=== PATIENT | female | born 1945 | race Asian ===

== ENCOUNTER 2018-07-16 10:19 | Observation (INO) ==
[2018-07-16] MEDS ORDERED: Pantoprazole Inj 40 MG Vial IV.PUSH ONE (13:37)
[2018-07-16 14:02] LABS: Baso % (Auto) 0.4 % (0.0-2.0); Eos # (Auto) 0.1 th/mm3 (0.0-0.4); Hemoglobin 8.8 gm/dL (11.6-15.3); Lymph # (Auto) 2.2 th/mm3 (1.0-4.8); Lymph % (Auto) 20.7 % (9.0-44.0); Mean Corpuscular HGB Conc 32.7 % (32.0-36.0); Mean Corpuscular Hemoglobin 29.4 pg (27.0-34.0); Mean Corpuscular Volume 90.1 fL (80.0-100.0); Mean Platelet Volume 8.5 fL (7.0-11.0); Mono # (Auto) 0.6 th/mm3 (0.0-0.9); Mono % (Auto) 5.5 % (0.0-8.0); Neut # (Auto) 7.8 th/mm3 (1.8-7.7); Neut % (Auto) 72.4 % (16.0-70.0); Platelet Count 334 th/mm3 (150-450); Red Cell Distribution Width 18.9 % (11.6-17.2); White Blood Count 10.8 th/mm3 (4.0-11.0)
[2018-07-16 14:12] LABS: Activated Partial Thrombo Time 25.7 sec (24.3-30.1); INR 0.9 Ratio; Prothrombin Time 9.4 sec (9.8-11.6)
[2018-07-16 14:26] LABS: Alanine Aminotransferase 22 U/L (10-53); Albumin 3.9 g/dL (3.4-5.0); Anion Gap 8 meq/L (5-15); Aspartate Aminotransferase 21 U/L (15-37); Blood Urea Nitrogen 10 mg/dL (7-18); Carbon Dioxide 24.9 meq/L (21.0-32.0); Chloride 108 meq/L (98-107); Glomerular Filtration Rate 66 mL/min (>89); Glucose,Random 102 mg/dL (74-106); Potassium 3.4 meq/L (3.5-5.1); Sodium 141 meq/L (136-145)
[2018-07-16 14:30] LABS: Alkaline Phosphatase 50 U/L (45-117); Total Protein 7.4 g/dL (6.4-8.2)
--- NOTE | 2018-07-16 16:01 | ED ---
HPI General Chief complaint: Recheck/Abnormal Lab/Rx Stated complaint: abnl labs Time Seen by Provider: 07/16/18 13:25 Source: patient and family Mode of arrival: ambulatory Limitations: no limitations History of Present Illness HPI narrative: 72-year-old female that presents to the ED for evaluation of low hemoglobin. Per patient she was called by her doctor because her hemoglobin was 7.9. She was told to come here. Apparently she went to see her doctor this week for a checkup as well as for evaluation of shortness of breath with exertion as well as feeling weak and tired. Per patient she had a epigastric pain as well as feeling like she was sick over the weekend. Per patient now that is better but she still has shortness of breath with exertion which she did not had before. Per patient and family members she is very active and she walks almost every day. Before she was able to walk with minimal exertion but now for the past week even walking just to the bathroom gives her very exerted. She denies any active bleeding. She does take aspirin but no blood thinner. She denies any history of heart disease. No urinary or bowel movement issues. No chest pain. No shortness of breath or tone with exertion. Has not seen anybody for this and has per patient never had a colonoscopy. She denies any history of ulcers. She denies any other medical issues at this time. Per patient she was told to come by her doctor because she may be bleeding. Related Data Home Medications Medication Instructions Recorded Confirmed calcium carbonate-vitamin D3 1,000 mg PO DAILY 07/16/18 07/16/18 [Calcium 500 + D] jgvavavkjbpu-iurw-pizvj acid 1 tab PO DAILY 07/16/18 07/16/18 [Centrum] risedronate [Actonel] 150 mg PO QMONTH 07/16/18 07/16/18 Allergies Allergy/AdvReac Type Severity Reaction Status Date / Time No Known Allergies Allergy Verified 07/16/18 13:37 Review of Systems ROS: all other systems reviewed are negative ON LICENSE OF [facility] Medical History Medical History High cholesterol (Acute) Osteoporosis (Acute) History of hysterectomy (Acute) Social History Social History Substance History: No History of Abuse Smoking Status: Current every day smoker Tobacco Type: Cigarettes How Often Do You Have a Drink Containing Alcohol: Never Recent Travel in [facility] within the Last 8 Weeks: No Immunization History Tetanus Immunization: >5 Years Hx Influenza Vaccine This Season: No Exam Narrative Exam Narrative: GENERAL: SKIN: Warm and dry. HEAD: Atraumatic. Normocephalic. EYES: Pupils equal and round. No scleral icterus. No injection or drainage. ENT: No nasal bleeding or discharge. Mucous membranes pink and moist. Tongue is midline. No uvula deviation. NECK: Trachea midline. No JVD. CARDIOVASCULAR: Regular rate and rhythm. RESPIRATORY: No accessory muscle use. Clear to auscultation. Breath sounds equal bilaterally. GASTROINTESTINAL: Abdomen soft, non-tender, nondistended. Hepatic and splenic margins not palpable. Rectal exam: old external hemorroid with no active bleeding. no rectal blood noted. MUSCULOSKELETAL: Extremities without clubbing, cyanosis, or edema. No obvious deformities. Full ROM of the upper and lower extremities bilaterally. 2+ bilaterally. NEUROLOGICAL: Awake and alert. No obvious cranial nerve deficits. Motor grossly within normal limits. Five out of 5 muscle strength in the arms and legs. Normal speech. PSYCHIATRIC: Appropriate mood and affect; insight and judgment normal. Procedures Hemaprompt Stool Procedural Steps Taken: specimen placed in appropriate test area, developer placed on specimen and control areas and controls appropriately positive and negative Hemaprompt Stool Result: positive Course Initial Documented Vital Signs Temperature 98.5 F 07/16/18 10:31 Pulse Rate 96 H 07/16/18 10:31 Respiratory Rate 18 07/16/18 10:31 Blood Pressure 169/74 H 07/16/18 10:31 Pulse Oximetry 98 07/16/18 10:31 Last Documented Vital Signs Temperature 98.5 F 07/16/18 10:31 Pulse Rate 96 H 07/16/18 10:31 Respiratory Rate 18 07/16/18 10:31 Blood Pressure 169/74 H 07/16/18 10:31 Pulse Oximetry 98 07/16/18 10:31 Medical Decision Making [facility] Narrative Medical decision making narrative: 72-year-old female that presents to the ED for evaluation of possible GI bleed. Patient was properly examined and was found to have signs and symptoms consistent with GI bleed. Hemoglobin better than when she was told to come here. Patient does not take any blood thinners or than aspirin. She is symptomatic with exertion. Overall she looks well however. Do recommend admission for further evaluation and treatment of this. Patient was turned Protonix. No blood was given as patient does not have any cardiac disease and her hemoglobin is stable at 8.8. Patient and family agree with plan. Case discussed with Dr. Burciaga who agrees admission to their service. Medical Screen Exam Complete: Yes Emergency Medical Condition: Yes Differential Diagnosis Differential Diagnosis: GI bleed vs anemia vs symptomatic anemia vs excertional dyspnea Medical Records Medical records reviewed: Yes I reviewed the patient's medical records. Lab Data Lab results reviewed: Yes I reviewed the patient's lab results. Lab results narrative: trop negative, Result diagrams: 07/16/18 13:40 07/16/18 13:40 Lab Results 07/16/18 07/16/18 07/16/18 Range/Units 13:40 13:40 13:40 WBC 10.8 (4.0-11.0) th/mm3 RBC 3.00 L (4.00-5.30) mil/mm3 Hgb 8.8 L (11.6-15.3) gm/dL Hct 27.0 L (35.0-46.0) % MCV 90.1 (80.0-100.0) fL MCH 29.4 (27.0-34.0) pg MCHC 32.7 (32.0-36.0) % RDW 18.9 H (11.6-17.2) % Plt Count 334 (150-450) th/mm3 MPV 8.5 (7.0-11.0) fL Neut % (Auto) 72.4 H (16.0-70.0) % Lymph % (Auto) 20.7 (9.0-44.0) % [place] % (Auto) 5.5 (0.0-8.0) % Eos % (Auto) 1.0 (0.0-4.0) % Baso % (Auto) 0.4 (0.0-2.0) % Neut # (Auto) 7.8 H (1.8-7.7) th/mm3 Lymph # (Auto) 2.2 (1.0-4.8) th/mm3 [place] # (Auto) 0.6 (0.0-0.9) th/mm3 Eos # (Auto) 0.1 (0.0-0.4) th/mm3 Baso # (Auto) 0.0 (0.0-0.2) th/mm3 WBC Differential . Differential Comment Auto diff final PT 9.4 L (9.8-11.6) sec INR 0.9 Ratio APTT 25.7 (24.3-30.1) sec Sodium 141 (136-145) meq/L Potassium 3.4 L (3.5-5.1) meq/L Chloride 108 H (98-107) meq/L Carbon Dioxide 24.9 (21.0-32.0) meq/L Anion Gap 8 (5-15) meq/L BUN 10 (7-18) mg/dL Creatinine 0.85 (0.50-1.00) mg/dL Estimated GFR 66 L (>89) mL/min Random Glucose 102 (74-106) mg/dL Calcium 9.0 (8.5-10.1) mg/dL Total Bilirubin 0.2 (0.2-1.0) mg/dL AST 21 (15-37) U/L ALT 22 (10-53) U/L Alkaline Phosphatase 50 (45-117) U/L Troponin I Less than 0.02 L (0.02-0.05) ng/mL Total Protein 7.4 (6.4-8.2) g/dL Albumin 3.9 (3.4-5.0) g/dL Blood Type Antibody Screen 07/16/18 Range/Units 13:40 WBC (4.0-11.0) th/mm3 RBC (4.00-5.30) mil/mm3 Hgb (11.6-15.3) gm/dL Hct (35.0-46.0) % MCV (80.0-100.0) fL MCH (27.0-34.0) pg MCHC (32.0-36.0) % RDW (11.6-17.2) % Plt Count (150-450) th/mm3 MPV (7.0-11.0) fL Neut % (Auto) (16.0-70.0) % Lymph % (Auto) (9.0-44.0) % [place] % (Auto) (0.0-8.0) % Eos % (Auto) (0.0-4.0) % Baso % (Auto) (0.0-2.0) % Neut # (Auto) (1.8-7.7) th/mm3 Lymph # (Auto) (1.0-4.8) th/mm3 [place] # (Auto) (0.0-0.9) th/mm3 Eos # (Auto) (0.0-0.4) th/mm3 Baso # (Auto) (0.0-0.2) th/mm3 WBC Differential Differential Comment PT (9.8-11.6) sec INR Ratio APTT (24.3-30.1) sec Sodium (136-145) meq/L Potassium (3.5-5.1) meq/L Chloride (98-107) meq/L Carbon Dioxide (21.0-32.0) meq/L Anion Gap (5-15) meq/L BUN (7-18) mg/dL Creatinine (0.50-1.00) mg/dL Estimated GFR (>89) mL/min Random Glucose (74-106) mg/dL Calcium (8.5-10.1) mg/dL Total Bilirubin (0.2-1.0) mg/dL AST (15-37) U/L ALT (10-53) U/L Alkaline Phosphatase (45-117) U/L Troponin I (0.02-0.05) ng/mL Total Protein (6.4-8.2) g/dL Albumin (3.4-5.0) g/dL Blood Type O Positive Antibody Screen Negative ECG Data Attestation: I personally reviewed and interpreted this ECG as follows: Interpretation: EKG shows sinus rhythm with no sign of acute ischemia or arrhythmia. Read by me and attending. Discharge Plan Discharge Disposition Patient Disposition: 30 Still Patient Discharge Details Diagnosis: Acute GI bleeding, Symptomatic anemia, Exertional dyspnea Physicians Team ED Provider: Franklin Flores ED Midlevel Provider: Rajeev Brown Primary Care Provider: Ale Mcgrath Attending Provider: Tio Burciaga Other Providers: Grace Montalvo Discharge Interventions Interventions: Vital Signs Last Done: 07/16/18 10:31 Status ED Status: Admitted Observation Patient
[2018-07-16] MEDS ORDERED: Bisacodyl 10 MG Supp RECTAL PRN (16:05)
[2018-07-16] MEDS ORDERED: Acetaminophen 325 MG Tablet PO PRN (16:05)
[2018-07-16] MEDS: Pantoprazole Inj 80 MG in Sodium Chlor 0.9% Inj 100 ML IV.CONT SCH (16:41)
--- NOTE | 2018-07-16 16:45 | XR ---
EXAM DATE: 07/16/2018 4:04 PM EDT AGE/SEX: 72 years / Female INDICATIONS: Chest pain. CLINICAL DATA: This is the patient's initial encounter. Patient reports that signs and symptoms have been present for 1 day and indicates a pain score of 4/10. MEDICAL/SURGICAL HISTORY: None. None. COMPARISON: No prior exams available for comparison. FINDINGS: Portable AP view of the chest demonstrates a normal-sized cardiac silhouette with calcification of th e aorta. EKG lines overlie the patient. No effusion, consolidation, or pneumothorax is identified. Th e bones and soft tissues demonstrate no acute abnormality. CONCLUSION: No acute cardiopulmonary abnormality is identified. Electronically signed by: Cj Small MD 07/16/2018 4:44 PM EDT
--- NOTE | 2018-07-16 16:45 | P.HP ---
History of Present Illness Service: Hospitalist Primary Care Physician: Ale Mcgrath MD Chief Complaint: Shortness of breath History of Present Illness: Patient is a 72-year-old female who presented to the emergency room after seeing her primary care physician who noted low hemoglobin. Her past medical history includes osteoporosis and hyperlipidemia. Patient was found to have a hemoglobin of 8.8 in the emergency room. She complains of becoming very short of breath and tired while doing physical activity that was previously not difficult for her. This is been going on for 2-3 days and was initially noticed after her daily 20-30 minute walks. She also reports a recent episode of epigastric pain over the weekend that resolved on its own. She has not had any nausea or vomiting. She does tell me that she has been experiencing hard stools for several days. She did have a large bowel movement today-denies any blood or dark tarry stools. No history of GI problems or bleeds. She has never had a colonoscopy per her report. She is a current smoker-tells me she has cut back and now only smokes 1 pack over every 3 days. Denies any history of asthma or problems with shortness of breath. No recent respiratory illnesses. Denies any cardiac history other than hyperlipidemia. Per her report her primary doctor recently stopped her statin as he felt it was not beneficial any longer. She does take a daily aspirin. Review of Systems All other systems reviewed negative except as stated in HPI PMFSH - History History Provided By: Patient - Medical History Medical History: Medical History (Last Reviewed 07/16/18 @ 17:05 by WAQAR Marin) High cholesterol Osteoporosis History of hysterectomy - Family History Family History: Family History (Last Reviewed 07/16/18 @ 17:05 by WAQAR Marin) Other Family history non-contributory - Social History I have reviewed the patient's Social History: Yes - Tobacco History Second Hand Smoke Exposure: Yes Tobacco Use In Past 30 Days: Yes Smoking Status: Current every day smoker Tobacco Type: Cigarettes - Alcohol History How Often Do You Have a Drink Containing Alcohol: Never - Substance Use History Substance History: No History of Abuse - Travel History History of Recent Travel: No Recent Travel in the [place] Within the Last 8 Weeks: No Recent Travel Out of the Country Within the Last 8 Weeks: No - Immunization History Tetanus Immunization: >5 Years Hx Influenza Vaccine This Season: No Medications and Allergies Active Medications: Active Medications Acetaminophen (Tylenol) 650 mg PO Q4H PRN PRN Reason: Headache, fever, pain 1-4 Al Hydroxide/Mg Hydroxide (Milk Of Magnesia Liq) 30 ml PO Q12H PRN PRN Reason: Mild Constipation Bisacodyl (Dulcolax Supp) 10 mg RECTAL DAILY PRN PRN Reason: SEVERE CONSITIPATION Pantoprazole Sodium 80 mg/ (Sodium Chloride) 100 mls @ 10 mls/hr IV.CONT CONT MADHU Last Admin: 07/16/18 16:41 Dose: 10 mls/hr Lactulose (Lactulose Liq) 30 ml PO DAILY PRN PRN Reason: SEVERE CONSITIPATION Ondansetron HCl (Zofran Inj) 4 mg IV.PUSH Q6H PRN PRN Reason: NAUSEA OR VOMITING Sennosides (Senokot) 17.2 mg PO Q12H PRN PRN Reason: Moderate Constipation Allergies Allergy/AdvReac Type Severity Reaction Status Date / Time No Known Allergies Allergy Verified 07/16/18 13:37 Home Medications Medication Instructions Recorded Confirmed Type calcium carbonate-vitamin D3 1,000 mg PO DAILY 07/16/18 07/16/18 History [Calcium 500 + D] sokfakjsdria-woqh-bjsxq acid 1 tab PO DAILY 07/16/18 07/16/18 History [Centrum] risedronate [Actonel] 150 mg PO QMONTH 07/16/18 07/16/18 History Exam Vital signs: Vital Signs 07/16/18 10:31 Temperature 98.5 F Pulse Rate 96 H Respiratory Rate 18 Blood Pressure 169/74 H Pulse Oximetry 98 Intake & Output 07/15/18 07/16/18 07/16/18 18:59 06:59 18:59 Weight 42.638 kg Narrative: GENERAL: Well-nourished, well-developed adult female in no obvious distress. SKIN: Warm and dry. HEAD: Atraumatic. Normocephalic. CARDIOVASCULAR: Regular rate and rhythm. RESPIRATORY: No accessory muscle use. Clear to auscultation. Breath sounds equal bilaterally. GASTROINTESTINAL: Abdomen soft, mildly tender, distended. Positive bowel sounds. MUSCULOSKELETAL: Extremities without clubbing, cyanosis, or edema. No obvious deformities. NEUROLOGICAL: Awake and alert. No obvious cranial nerve deficits. Motor grossly within normal limits. Normal speech. PSYCHIATRIC: Appropriate mood and affect; insight and judgment good. Results - Labs CBC & Chem 7: 07/16/18 13:40 07/16/18 13:40 Labs: Laboratory Results - last 24 hr 07/16/18 07/16/18 07/16/18 13:40 13:40 13:40 WBC 10.8 RBC 3.00 L Hgb 8.8 L Hct 27.0 L MCV 90.1 MCH 29.4 MCHC 32.7 RDW 18.9 H Plt Count 334 MPV 8.5 Neut % (Auto) 72.4 H Lymph % (Auto) 20.7 [place] % (Auto) 5.5 Eos % (Auto) 1.0 Baso % (Auto) 0.4 Neut # (Auto) 7.8 H Lymph # (Auto) 2.2 [place] # (Auto) 0.6 Eos # (Auto) 0.1 Baso # (Auto) 0.0 WBC Differential . Differential Comment Auto diff final PT 9.4 L INR 0.9 APTT 25.7 Sodium 141 Potassium 3.4 L Chloride 108 H Carbon Dioxide 24.9 Anion Gap 8 BUN 10 Creatinine 0.85 Estimated GFR 66 L Random Glucose 102 Calcium 9.0 Total Bilirubin 0.2 AST 21 ALT 22 Alkaline Phosphatase 50 Troponin I Less than 0.02 L Total Protein 7.4 Albumin 3.9 Blood Type Antibody Screen 07/16/18 13:40 WBC RBC Hgb Hct MCV MCH MCHC RDW Plt Count MPV Neut % (Auto) Lymph % (Auto) [place] % (Auto) Eos % (Auto) Baso % (Auto) Neut # (Auto) Lymph # (Auto) [place] # (Auto) Eos # (Auto) Baso # (Auto) WBC Differential Differential Comment PT INR APTT Sodium Potassium Chloride Carbon Dioxide Anion Gap BUN Creatinine Estimated GFR Random Glucose Calcium Total Bilirubin AST ALT Alkaline Phosphatase Troponin I Total Protein Albumin Blood Type O Positive Antibody Screen Negative Caprini VTE Risk Assessment Caprini VTE Risk Assessment: No/Low Risk (score <= 1) Caprini Risk Assessment Model: Point Value = 1 Point Value = 2 Point Value = 3 Point Value = 5 Age 41-60 Minor surgery BMI > 25 kg/m2 Swollen legs Varicose veins or History of unexplained or recurrent spontaneous Oral contraceptives or hormone replacement Sepsis (< 1 month) Serious lung disease, including pneumonia (< 1 month) Abnormal pulmonary function Acute myocardial infarction Congestive heart failure (< 1 month) History of inflammatory bowel disease Medical patient at bed rest Age 61-74 Arthroscopic surgery Major open surgery (> 45 min) Laparoscopic surgery (> 45 min) Malignancy Confined to bed (> 72 hours) Immobilizing plaster cast Central venous access Age >= 75 History of VTE Family history of VTE Factor V Leiden Prothrombin [id number] Lupus anticoagulant Anticardiolipin antibodies Elevated serum homocysteine Heparin-induced thrombocytopenia Other congenital or acquired thrombophilia Stroke (< 1 month) Elective arthroplasty Hip, pelvis, or leg fracture Acute spinal cord injury (< 1 month) Prophylaxis Regimen: Total Risk Factor Score Risk Level Prophylaxis Regimen 0-1 Low Early ambulation 2 Moderate Order ONE of the following: *Sequential Compression Device (SCD) *Heparin 5000 units SQ BID 3-4 Higher Order ONE of the following medications: *Heparin 5000 units SQ TID *Enoxaparin/Lovenox 40 mg SQ daily (WT < 150 kg, CrCl > 30 mL/min) *Enoxaparin/Lovenox 30 mg SQ daily (WT < 150 kg, CrCl > 10-29 mL/min) *Enoxaparin/Lovenox 30 mg SQ BID (WT < 150 kg, CrCl > 30 mL/min) AND/OR *Sequential Compression Device (SCD) 5 or more Highest Order ONE of the following medications: *Heparin 5000 units SQ TID (Preferred with Epidurals) *Enoxaparin/Lovenox 40 mg SQ daily (WT < 150 kg, CrCl > 30 mL/min) *Enoxaparin/Lovenox 30 mg SQ daily (WT < 150 kg, CrCl > 10-29 mL/min) *Enoxaparin/Lovenox 30 mg SQ BID (WT < 150 kg, CrCl > 30 mL/min) AND *Sequential Compression Device (SCD) Assessment and Plan - Plan 72-year-old female with a history of osteoporosis and hyperlipidemia who presents with increasing shortness of breath. Hemoglobin 8.8 on arrival. Suspected GI bleed. Anemia Exertional dyspnea -Suspected GI bleed; GI consulted -planned EGD and colonoscopy -Chest x-ray, EKG, BMP ordered to rule out other cause DVT prophylaxis: SCDs Discussed with: Patient, nurse, Yessy Schuster Discharge planning: Likely will return home
--- NOTE | 2018-07-16 16:56 | P.CONGI ---
History of Present Illness Consult date: 07/16/18 Consult reason: Anemia Chief complaint: SOB with excertion, symptomatic anemia, GI BLEED History of Present Illness: This is a 72 yo F with no significant past medical history who had outpatient labs done by her PCP for complaints of SOB on exertion, which revealed anemia. She was advised to come to the ER for further work up, ER provider did Hemoccult stool which was positive. Our service has been consulted for further work up. Pt does report an uneasy feeling in her stomach that she can't describe last and Thursday that was relieved with Megan-Rye. Denies nausea, vomiting, heartburn, abdominal pain. Denies any changes in bowel habits. Has never had EGD or colonoscopy. Takes a Collin ASA daily. Denies blood thinners and NSAID use. Denies family history of colon cancer. <Yessy Lopez - Last Filed: 07/16/18 16:44> Review of Systems Gastrointestinal: Denies abdominal pain, Denies black, tarry stools, Denies bright, red blood in stools, Denies change in bowel habits, Denies nausea, Denies vomiting <Yessy Lopez - Last Filed: 07/16/18 16:44> PMFSH - History History Provided By: Patient - Medical History Medical History: Medical History (Last Reviewed 07/16/18 @ 15:57 by ROMA Austin) High cholesterol Osteoporosis History of hysterectomy - Tobacco History Tobacco Use In Past 30 Days: Yes Smoking Status: Current every day smoker Tobacco Type: Cigarettes - Alcohol History How Often Do You Have a Drink Containing Alcohol: Never - Substance Use History Substance History: No History of Abuse - Travel History Recent Travel in the [facility] Within the Last 8 Weeks: No - Immunization History Tetanus Immunization: >5 Years Hx Influenza Vaccine This Season: No <Yessy Lopez - Last Filed: 07/16/18 16:44> - Medical History Medical History: Medical History (Last Reviewed 07/16/18 @ 15:57 by ROMA Austin) High cholesterol Osteoporosis History of hysterectomy <Grace Montalvo - Last Filed: 07/16/18 17:09> Medications and Allergies Active Medications: Active Medications Acetaminophen (Tylenol) 650 mg PO Q4H PRN PRN Reason: Headache, fever, pain 1-4 Al Hydroxide/Mg Hydroxide (Milk Of Magnesia Liq) 30 ml PO Q12H PRN PRN Reason: Mild Constipation Bisacodyl (Dulcolax Supp) 10 mg RECTAL DAILY PRN PRN Reason: SEVERE CONSITIPATION Pantoprazole Sodium 80 mg/ (Sodium Chloride) 100 mls @ 10 mls/hr IV.CONT CONT [facility] Last Admin: 07/16/18 16:41 Dose: 10 mls/hr Lactulose (Lactulose Liq) 30 ml PO DAILY PRN PRN Reason: SEVERE CONSITIPATION Ondansetron HCl (Zofran Inj) 4 mg IV.PUSH Q6H PRN PRN Reason: NAUSEA OR VOMITING Sennosides (Senokot) 17.2 mg PO Q12H PRN PRN Reason: Moderate Constipation <Yessy Lopez - Last Filed: 07/16/18 16:44> Active Medications: Active Medications Acetaminophen (Tylenol) 650 mg PO Q4H PRN PRN Reason: Headache, fever, pain 1-4 Al Hydroxide/Mg Hydroxide (Milk Of Magnesia Liq) 30 ml PO Q12H PRN PRN Reason: Mild Constipation Bisacodyl (Dulcolax Supp) 10 mg RECTAL DAILY PRN PRN Reason: SEVERE CONSITIPATION Pantoprazole Sodium 80 mg/ (Sodium Chloride) 100 mls @ 10 mls/hr IV.CONT CONT [facility] Last Admin: 07/16/18 16:41 Dose: 10 mls/hr Lactulose (Lactulose Liq) 30 ml PO DAILY PRN PRN Reason: SEVERE CONSITIPATION Magnesium Citrate (Citroma Liq) 300 ml PO ONCE ONE Stop: 07/18/18 16:01 Magnesium Citrate (Citroma Liq) 300 ml PO ONCE ONE Stop: 07/18/18 18:01 Ondansetron HCl (Zofran Inj) 4 mg IV.PUSH Q6H PRN PRN Reason: NAUSEA OR VOMITING Sennosides (Senokot) 17.2 mg PO Q12H PRN PRN Reason: Moderate Constipation <Grace Montalvo - Last Filed: 07/16/18 17:09> Allergies Allergy/AdvReac Type Severity Reaction Status Date / Time No Known Allergies Allergy Verified 07/16/18 13:37 Home Medications Medication Instructions Recorded Confirmed Type calcium carbonate-vitamin D3 1,000 mg PO DAILY 07/16/18 07/16/18 History [Calcium 500 + D] [id number] acid 1 tab PO DAILY 07/16/18 07/16/18 History [Centrum] risedronate [Actonel] 150 mg PO QMONTH 07/16/18 07/16/18 History Exam Vital signs: Vital Signs 07/16/18 10:31 Temperature 98.5 F Pulse Rate 96 H Respiratory Rate 18 Blood Pressure 169/74 H Pulse Oximetry 98 Intake & Output 07/15/18 07/16/18 07/16/18 18:59 06:59 18:59 Weight 42.638 kg - Constitutional no acute distress - Routine HEENT Exam Head: Present: normocephalic, atraumatic - Routine Respiratory Exam Absent: accessory muscle use - Routine Cardiovascular Exam Present: RRR - Routine Abdominal Exam Present: soft, normoactive bowel sounds. Absent: tenderness, distended - Routine Skin Exam Present: dry, warm - Routine Neurological Exam Present: alert, oriented X3 <Yessy Lopez - Last Filed: 07/16/18 16:44> Vital signs: Vital Signs 07/16/18 10:31 Temperature 98.5 F Pulse Rate 96 H Respiratory Rate 18 Blood Pressure 169/74 H Pulse Oximetry 98 Intake & Output 07/15/18 07/16/18 07/16/18 18:59 06:59 18:59 Weight 42.638 kg <Grace Montalvo - Last Filed: 07/16/18 17:09> Results - Labs CBC & Chem 7: 07/16/18 13:40 07/16/18 13:40 Labs: Laboratory Results - last 24 hr 07/16/18 07/16/18 07/16/18 13:40 13:40 13:40 WBC 10.8 RBC 3.00 L Hgb 8.8 L Hct 27.0 L MCV 90.1 MCH 29.4 MCHC 32.7 RDW 18.9 H Plt Count 334 MPV 8.5 Neut % (Auto) 72.4 H Lymph % (Auto) 20.7 [place] % (Auto) 5.5 Eos % (Auto) 1.0 Baso % (Auto) 0.4 Neut # (Auto) 7.8 H Lymph # (Auto) 2.2 [place] # (Auto) 0.6 Eos # (Auto) 0.1 Baso # (Auto) 0.0 WBC Differential . Differential Comment Auto diff final PT 9.4 L INR 0.9 APTT 25.7 Sodium 141 Potassium 3.4 L Chloride 108 H Carbon Dioxide 24.9 Anion Gap 8 BUN 10 Creatinine 0.85 Estimated GFR 66 L Random Glucose 102 Calcium 9.0 Total Bilirubin 0.2 AST 21 ALT 22 Alkaline Phosphatase 50 Troponin I Less than 0.02 L Total Protein 7.4 Albumin 3.9 Blood Type Antibody Screen 07/16/18 13:40 WBC RBC Hgb Hct MCV MCH MCHC RDW Plt Count MPV Neut % (Auto) Lymph % (Auto) [place] % (Auto) Eos % (Auto) Baso % (Auto) Neut # (Auto) Lymph # (Auto) [place] # (Auto) Eos # (Auto) Baso # (Auto) WBC Differential Differential Comment PT INR APTT Sodium Potassium Chloride Carbon Dioxide Anion Gap BUN Creatinine Estimated GFR Random Glucose Calcium Total Bilirubin AST ALT Alkaline Phosphatase Troponin I Total Protein Albumin Blood Type O Positive Antibody Screen Negative <Yessy Lopez - Last Filed: 07/16/18 16:44> - Labs CBC & Chem 7: 07/16/18 13:40 07/16/18 13:40 Labs: Laboratory Results - last 24 hr 07/16/18 07/16/18 07/16/18 13:40 13:40 13:40 WBC 10.8 RBC 3.00 L Hgb 8.8 L Hct 27.0 L MCV 90.1 MCH 29.4 MCHC 32.7 RDW 18.9 H Plt Count 334 MPV 8.5 Neut % (Auto) 72.4 H Lymph % (Auto) 20.7 [place] % (Auto) 5.5 Eos % (Auto) 1.0 Baso % (Auto) 0.4 Neut # (Auto) 7.8 H Lymph # (Auto) 2.2 [place] # (Auto) 0.6 Eos # (Auto) 0.1 Baso # (Auto) 0.0 WBC Differential . Differential Comment Auto diff final PT 9.4 L INR 0.9 APTT 25.7 Sodium 141 Potassium 3.4 L Chloride 108 H Carbon Dioxide 24.9 Anion Gap 8 BUN 10 Creatinine 0.85 Estimated GFR 66 L Random Glucose 102 Calcium 9.0 Total Bilirubin 0.2 AST 21 ALT 22 Alkaline Phosphatase 50 Troponin I Less than 0.02 L Total Protein 7.4 Albumin 3.9 Blood Type Antibody Screen 07/16/18 13:40 WBC RBC Hgb Hct MCV MCH MCHC RDW Plt Count MPV Neut % (Auto) Lymph % (Auto) [place] % (Auto) Eos % (Auto) Baso % (Auto) Neut # (Auto) Lymph # (Auto) [place] # (Auto) Eos # (Auto) Baso # (Auto) WBC Differential Differential Comment PT INR APTT Sodium Potassium Chloride Carbon Dioxide Anion Gap BUN Creatinine Estimated GFR Random Glucose Calcium Total Bilirubin AST ALT Alkaline Phosphatase Troponin I Total Protein Albumin Blood Type O Positive Antibody Screen Negative - Imaging Impressions Chest X-Ray 07/16/18 16:04 CONCLUSION: No acute cardiopulmonary abnormality is identified. <Grace Montalvo - Last Filed: 07/16/18 17:09> Assessment and Plan - Plan Assessment: - Anemia with Hemoccult positive stools Denies history of anemia, does not take iron or B12 supplements Complaints of SOB on exertion, which revealed anemia. She was advised to come to the ER for further work up, ER provider did Hemoccult stool which was positive. Our service has been consulted for further work up. Pt does report an uneasy feeling in her stomach that she can't describe last and Thursday that was relieved with Megan-Rye. Denies nausea, vomiting, heartburn, abdominal pain. Denies any changes in bowel habits. Has never had EGD or colonoscopy. Takes a Collin ASA daily. Denies blood thinners and NSAID use. Denies family history of colon cancer. Plan: EGD/colonoscopy tomorrow Obtain consent Clear liquids Thursday Mag Citrate prep NPO after MN Monitor H/H Transfuse as needed Protonix Further recommendations to follow Pt has been seen and examined by myself and Dr. Montalvo and this note is written on his behalf <Yessy Lopez - Last Filed: 07/16/18 16:44> - Plan Seen and examined with [employer], sent to the er for symptomatic anemia. No active bleeding. EGD/colonoscopy inpatient or outpatient next week. Transfuse as needed. Discussed with pt. and family at the bedside. Thank you The exam, history, and the medical decision-making described in the above note were completed with the assistance of the mid-level provider. I reviewed and agree with the findings presented. I attest that I had a [id number] encounter with the patient on the same day, and personally performed and documented my assessment and findings in the medical record. <Grace Montalvo - Last Filed: 07/16/18 17:09>
[2018-07-16 19:48] LABS: Lactate Dehydrogenase 157 U/L (84-246); Vitamin B12 479 pg/mL (193-986)
--- NOTE | 2018-07-16 21:31 | ECG ---
Date Performed: 07/16/2018 Time Performed: 13:34:20 PTAGE: 72 years EKG: Marked baseline artifact Sinus rhythm POSSIBLE LEFT ATRIAL ENLARGEMENT BORDERLINE ECG NO PREVIOUS TRACING DOCTOR: Manny Pacheco Interpretating Date/Time 07/16/2018 21:30:07
[2018-07-17] MEDS: Pantoprazole Inj 80 MG in Sodium Chlor 0.9% Inj 100 ML IV.CONT SCH ×3 (02:06→22:01)
[2018-07-17 05:36] LABS: Hematocrit 24.3 % (35.0-46.0); Hemoglobin 7.9 gm/dL (11.6-15.3)
[2018-07-17 05:53] LABS: Calcium 8.4 mg/dL (8.5-10.1); Carbon Dioxide 24.1 meq/L (21.0-32.0); Magnesium 2.2 mg/dL (1.5-2.5); Potassium 3.5 meq/L (3.5-5.1)
[2018-07-17 11:12] LABS: % Iron Saturation 2.8 % (20-50)
--- NOTE | 2018-07-17 11:22 | P.PNGI ---
Subjective Interval history: Sitting up in the bed, awake answering simple questions family at her bedside Currently denies any shortness of breath no nausea no vomiting no abdominal pain Appetite this a.m. requesting solid food <Vivian Alfred - Last Filed: 07/17/18 11:22> Physical Exam Vital signs: Vital Signs 07/16/18 17:09 07/16/18 17:53 07/16/18 18:28 Temperature 98.5 F Pulse Rate 82 91 H Respiratory Rate 16 16 Blood Pressure 166/79 H 145/66 H Pulse Oximetry 99 97 97 07/16/18 19:34 07/16/18 20:00 07/16/18 23:16 Temperature 98.2 F 98.6 F Pulse Rate 84 65 Respiratory Rate 18 17 Blood Pressure 137/65 110/53 L Pulse Oximetry 98 98 97 07/17/18 00:00 07/17/18 03:32 07/17/18 08:00 Temperature 98.6 F 98.4 F 98.8 F Pulse Rate 65 86 84 Respiratory Rate 17 17 16 Blood Pressure 110/53 L 120/56 L 124/60 Pulse Oximetry 97 97 98 07/17/18 08:40 Temperature Pulse Rate 95 H Respiratory Rate Blood Pressure Pulse Oximetry Intake & Output 07/16/18 07/17/18 07/17/18 18:59 06:59 18:59 Intake Total 100 / 100 Balance 100 / 100 Weight 42.638 kg 42.638 kg Intake: IV 100 / 100 Protonix Inj 80 MG In NS Inj 100 / 100 100 ML @ 10 mls/hr IV.CONT CONT [facility] Rx#:[id number] Other: Date of Last Bowel Movement 07/16/18 Weight On Admission 42.638 kg - Constitutional mild distress, thin - Routine HEENT Exam Head: Present: normocephalic ENT: Present: mucous membranes dry - Routine Neck Exam Present: supple - Routine Respiratory Exam Present: accessory muscle use (No obvious shortness of breath or wheezing or rhonchi) - Routine Cardiovascular Exam Present: RRR, S1 - Routine Abdominal Exam Present: soft (Round, no obvious tenderness or distention, soft bowel sounds) - Routine Skin Exam Present: intact - Routine Neurological Exam Present: alert <Vivian Alfred - Last Filed: 07/17/18 11:22> Vital signs: Vital Signs 07/16/18 17:09 07/16/18 17:53 07/16/18 18:28 Temperature 98.5 F Pulse Rate 82 91 H Respiratory Rate 16 16 Blood Pressure 166/79 H 145/66 H Pulse Oximetry 99 97 97 07/16/18 19:34 07/16/18 20:00 07/16/18 23:16 Temperature 98.2 F 98.6 F Pulse Rate 84 65 Respiratory Rate 18 17 Blood Pressure 137/65 110/53 L Pulse Oximetry 98 98 97 07/17/18 00:00 07/17/18 03:32 07/17/18 08:00 Temperature 98.6 F 98.4 F 98.8 F Pulse Rate 65 86 84 Respiratory Rate 17 17 16 Blood Pressure 110/53 L 120/56 L 124/60 Pulse Oximetry 97 97 98 07/17/18 08:40 07/17/18 12:00 07/17/18 13:50 Temperature 98.2 F Pulse Rate 95 H 83 Respiratory Rate 16 Blood Pressure 133/63 Pulse Oximetry 99 98 07/17/18 14:14 07/17/18 14:15 Temperature Pulse Rate 119 H 113 H Respiratory Rate 18 18 Blood Pressure 125/55 L 127/61 Pulse Oximetry 97 98 Intake & Output 07/16/18 07/17/18 07/17/18 18:59 06:59 18:59 Intake Total 100 / 100 100 / 100 Balance 100 / 100 100 / 100 Weight 42.638 kg 42.638 kg Intake: IV 100 / 100 100 / 100 Protonix Inj 80 MG In NS Inj 100 / 100 100 / 100 100 ML @ 10 mls/hr IV.CONT CONT [facility] Rx#:[id number] Other: Date of Last Bowel Movement 07/16/18 Weight On Admission 42.638 kg <Grace Montalvo - Last Filed: 07/17/18 15:36> Results - Labs CBC & Chem 7: 07/17/18 05:08 07/17/18 05:08 Laboratory Results - last 24 hr 07/16/18 07/16/18 07/16/18 13:40 13:40 13:40 WBC 10.8 RBC 3.00 L Hgb 8.8 L Hct 27.0 L MCV 90.1 MCH 29.4 MCHC 32.7 RDW 18.9 H Plt Count 334 MPV 8.5 Neut % (Auto) 72.4 H Lymph % (Auto) 20.7 [place] % (Auto) 5.5 Eos % (Auto) 1.0 Baso % (Auto) 0.4 Neut # (Auto) 7.8 H Lymph # (Auto) 2.2 [place] # (Auto) 0.6 Eos # (Auto) 0.1 Baso # (Auto) 0.0 WBC Differential . Differential Comment Auto diff final PT 9.4 L INR 0.9 APTT 25.7 Sodium 141 Potassium 3.4 L Chloride 108 H Carbon Dioxide 24.9 Anion Gap 8 BUN 10 Creatinine 0.85 Estimated GFR 66 L Random Glucose 102 Calcium 9.0 Magnesium Iron TIBC % Saturation Ferritin Total Bilirubin 0.2 AST 21 ALT 22 Alkaline Phosphatase 50 Lactate Dehydrogenase Troponin I Less than 0.02 L B-Natriuretic Peptide Total Protein 7.4 Albumin 3.9 Vitamin B12 Folate Blood Type Antibody Screen 07/16/18 07/16/18 07/16/18 13:40 18:40 18:40 WBC RBC Hgb Hct MCV MCH MCHC RDW Plt Count MPV Neut % (Auto) Lymph % (Auto) [place] % (Auto) Eos % (Auto) Baso % (Auto) Neut # (Auto) Lymph # (Auto) [place] # (Auto) Eos # (Auto) Baso # (Auto) WBC Differential Differential Comment PT INR APTT Sodium Potassium Chloride Carbon Dioxide Anion Gap BUN Creatinine Estimated GFR Random Glucose Calcium Magnesium Iron TIBC % Saturation Ferritin Total Bilirubin AST ALT Alkaline Phosphatase Lactate Dehydrogenase 157 Troponin I B-Natriuretic Peptide 53 Total Protein Albumin Vitamin B12 479 Folate Greater than 20.0 H Blood Type O Positive Antibody Screen Negative 07/17/18 07/17/18 07/17/18 05:08 05:08 05:08 WBC RBC Hgb 7.9 L Hct 24.3 L MCV MCH MCHC RDW Plt Count MPV Neut % (Auto) Lymph % (Auto) [place] % (Auto) Eos % (Auto) Baso % (Auto) Neut # (Auto) Lymph # (Auto) [place] # (Auto) Eos # (Auto) Baso # (Auto) WBC Differential Differential Comment PT INR APTT Sodium 145 Potassium 3.5 Chloride 111 H Carbon Dioxide 24.1 Anion Gap 10 BUN 13 Creatinine 0.67 Estimated GFR 86 L Random Glucose 96 Calcium 8.4 L Magnesium 2.2 Iron 10 L TIBC 354 % Saturation 2.8 L Ferritin 9 Total Bilirubin AST ALT Alkaline Phosphatase Lactate Dehydrogenase Troponin I B-Natriuretic Peptide Total Protein Albumin Vitamin B12 Folate Blood Type Antibody Screen - Imaging Impressions Chest X-Ray 07/16/18 16:04 CONCLUSION: No acute cardiopulmonary abnormality is identified. <Vivian Alfred - Last Filed: 07/17/18 11:22> - Labs CBC & Chem 7: 07/17/18 12:44 07/17/18 05:08 Laboratory Results - last 24 hr 07/16/18 07/16/18 07/17/18 18:40 18:40 05:08 Hgb 7.9 L Hct 24.3 L Sodium Potassium Chloride Carbon Dioxide Anion Gap BUN Creatinine Estimated GFR Random Glucose Calcium Magnesium Iron TIBC % Saturation Ferritin Lactate Dehydrogenase 157 B-Natriuretic Peptide 53 Vitamin B12 479 Folate Greater than 20.0 H 07/17/18 07/17/18 07/17/18 05:08 05:08 12:44 Hgb 7.9 L Hct 23.6 L Sodium 145 Potassium 3.5 Chloride 111 H Carbon Dioxide 24.1 Anion Gap 10 BUN 13 Creatinine 0.67 Estimated GFR 86 L Random Glucose 96 Calcium 8.4 L Magnesium 2.2 Iron 10 L TIBC 354 % Saturation 2.8 L Ferritin 9 Lactate Dehydrogenase B-Natriuretic Peptide Vitamin B12 Folate - Imaging Impressions Chest X-Ray 07/16/18 16:04 CONCLUSION: No acute cardiopulmonary abnormality is identified. <SelvinEdwards - Last Filed: 07/17/18 15:36> Assessment and Plan - Plan - Anemia with Hemoccult positive stools Denies history of anemia, does not take iron or B12 supplements Complaints of SOB on exertion, which revealed anemia. She was advised to come to the ER for further work up, ER provider did Hemoccult stool which was positive. Our service has been consulted for further work up. Pt does report an uneasy feeling in her stomach that she can't describe last and Thursday that was relieved with Megan-[place]. Denies nausea, vomiting, heartburn, abdominal pain. Denies any changes in bowel habits. Has never had EGD or colonoscopy. Takes a Collin ASA daily. Denies blood thinners and NSAID use. Denies family history of colon cancer. 07/17/2018 patient is resting in the bed family members present appetite has improved and is currently requesting food today cardiac diet has been ordered. Discussed with patient EGD and colonoscopy Thursday and expectations. Currently patient denies any abdominal pain nausea or vomiting. Family and patient state approximately of 6 pound weight loss in the past 2-3 months. Hemoglobin check was initially 8.8 now 7.9, PT/INR 0.9, folate level less than 20, bilirubin and LFTs are normal. Discussed with patient positive Hemoccult on admission and patient does state she has history of hemorrhoids , but no obvious bleeding No obvious shortness of breath at rest this a.m. Symptomatic anemia with mild decreasing hemoglobin. Consider transfusion if symptomatic Plan: Diet cardiac diet, encouraged hydration EGD/colonoscopy, plan for Thursday, consent, mag citrate prep, and clear liquids have been ordered for 07/18/2018 Monitor labs with special attention to hemoglobin, consider transfusion if symptomatic Protonix Bowel regimen Supportive care Further recommendations to follow Pt has been seen and examined by myself and Dr. Montalvo and this note is written on his behalf <Vivian Alfred - Last Filed: 07/17/18 11:22> - Plan Seen and examined with LATH [employer], egd/colonoscopy planned for thursday. No bleeding at this time. Bowel prep starting tomorrow. Family at the bedside. The exam, history, and the medical decision-making described in the above note were completed with the assistance of the mid-level provider. I reviewed and agree with the findings presented. I attest that I had a [id number] encounter with the patient on the same day, and personally performed and documented my assessment and findings in the medical record. <Grace Montalvo - Last Filed: 07/17/18 15:36>
--- NOTE | 2018-07-17 12:37 | P.PN ---
Subjective Interval history: Follow-up on patient with low blood count, exertional dyspnea. Patient seen and examined. Patient states she feels great. She denies any complaints. She has not been up yet to see if she gets short of breath with activity. She denies any chest pain or shortness of breath. She denies any nausea, vomiting or abdominal pain. She denies any dark/bloody/tarry stools. She denies any hematuria. Patient does not know if she suffers with anemia chronically. She denies any bilateral lower extremity swelling. Physical Exam Vital signs: Vital Signs 07/16/18 17:09 07/16/18 17:53 07/16/18 18:28 Temperature 98.5 F Pulse Rate 82 91 H Respiratory Rate 16 16 Blood Pressure 166/79 H 145/66 H Pulse Oximetry 99 97 97 07/16/18 19:34 07/16/18 20:00 07/16/18 23:16 Temperature 98.2 F 98.6 F Pulse Rate 84 65 Respiratory Rate 18 17 Blood Pressure 137/65 110/53 L Pulse Oximetry 98 98 97 07/17/18 00:00 07/17/18 03:32 07/17/18 08:00 Temperature 98.6 F 98.4 F 98.8 F Pulse Rate 65 86 84 Respiratory Rate 17 17 16 Blood Pressure 110/53 L 120/56 L 124/60 Pulse Oximetry 97 97 98 07/17/18 08:40 Temperature Pulse Rate 95 H Respiratory Rate Blood Pressure Pulse Oximetry Intake & Output 07/16/18 07/17/18 07/17/18 18:59 06:59 18:59 Intake Total 100 / 100 100 / 100 Balance 100 / 100 100 / 100 Weight 42.638 kg 42.638 kg Intake: IV 100 / 100 100 / 100 Protonix Inj 80 MG In NS Inj 100 / 100 100 / 100 100 ML @ 10 mls/hr IV.CONT CONT [facility] Rx#:[id number] Other: Date of Last Bowel Movement 07/16/18 Weight On Admission 42.638 kg Narrative: GENERAL: Thin elderly female, in no acute distress. Awake and alert. Not in any respiratory discomfort. Family is at the bedside SKIN: Warm and dry. HEAD: Atraumatic. Normocephalic. EYES: Pupils equal and round. No scleral icterus. No injection or drainage. ENT: No nasal bleeding or discharge. Mucous membranes pink and moist. NECK: Trachea midline. CARDIOVASCULAR: Regular rate and rhythm. RESPIRATORY: No accessory muscle use. Clear to auscultation. Breath sounds equal bilaterally. GASTROINTESTINAL: Abdomen soft, non-tender, nondistended. +BS. MUSCULOSKELETAL: Extremities without clubbing, cyanosis, or edema. No obvious deformities. NEUROLOGICAL: Awake and alert. No obvious cranial nerve deficits. Motor grossly within normal limits. Able to move all extremities spontaneously. Normal speech. PSYCHIATRIC: Appropriate mood and affect; insight and judgment normal. Results - Labs CBC & Chem 7: 07/17/18 05:08 07/17/18 05:08 Laboratory Results - last 24 hr 07/16/18 07/16/18 07/16/18 13:40 13:40 13:40 WBC 10.8 RBC 3.00 L Hgb 8.8 L Hct 27.0 L MCV 90.1 MCH 29.4 MCHC 32.7 RDW 18.9 H Plt Count 334 MPV 8.5 Neut % (Auto) 72.4 H Lymph % (Auto) 20.7 [place] % (Auto) 5.5 Eos % (Auto) 1.0 Baso % (Auto) 0.4 Neut # (Auto) 7.8 H Lymph # (Auto) 2.2 [place] # (Auto) 0.6 Eos # (Auto) 0.1 Baso # (Auto) 0.0 WBC Differential . Differential Comment Auto diff final PT 9.4 L INR 0.9 APTT 25.7 Sodium 141 Potassium 3.4 L Chloride 108 H Carbon Dioxide 24.9 Anion Gap 8 BUN 10 Creatinine 0.85 Estimated GFR 66 L Random Glucose 102 Calcium 9.0 Magnesium Iron TIBC % Saturation Ferritin Total Bilirubin 0.2 AST 21 ALT 22 Alkaline Phosphatase 50 Lactate Dehydrogenase Troponin I Less than 0.02 L B-Natriuretic Peptide Total Protein 7.4 Albumin 3.9 Vitamin B12 Folate Blood Type Antibody Screen 07/16/18 07/16/18 07/16/18 13:40 18:40 18:40 WBC RBC Hgb Hct MCV MCH MCHC RDW Plt Count MPV Neut % (Auto) Lymph % (Auto) [place] % (Auto) Eos % (Auto) Baso % (Auto) Neut # (Auto) Lymph # (Auto) [place] # (Auto) Eos # (Auto) Baso # (Auto) WBC Differential Differential Comment PT INR APTT Sodium Potassium Chloride Carbon Dioxide Anion Gap BUN Creatinine Estimated GFR Random Glucose Calcium Magnesium Iron TIBC % Saturation Ferritin Total Bilirubin AST ALT Alkaline Phosphatase Lactate Dehydrogenase 157 Troponin I B-Natriuretic Peptide 53 Total Protein Albumin Vitamin B12 479 Folate Greater than 20.0 H Blood Type O Positive Antibody Screen Negative 07/17/18 07/17/18 07/17/18 05:08 05:08 05:08 WBC RBC Hgb 7.9 L Hct 24.3 L MCV MCH MCHC RDW Plt Count MPV Neut % (Auto) Lymph % (Auto) [place] % (Auto) Eos % (Auto) Baso % (Auto) Neut # (Auto) Lymph # (Auto) [place] # (Auto) Eos # (Auto) Baso # (Auto) WBC Differential Differential Comment PT INR APTT Sodium 145 Potassium 3.5 Chloride 111 H Carbon Dioxide 24.1 Anion Gap 10 BUN 13 Creatinine 0.67 Estimated GFR 86 L Random Glucose 96 Calcium 8.4 L Magnesium 2.2 Iron 10 L TIBC 354 % Saturation 2.8 L Ferritin 9 Total Bilirubin AST ALT Alkaline Phosphatase Lactate Dehydrogenase Troponin I B-Natriuretic Peptide Total Protein Albumin Vitamin B12 Folate Blood Type Antibody Screen - Imaging Impressions Chest X-Ray 07/16/18 16:04 CONCLUSION: No acute cardiopulmonary abnormality is identified. Assessment and Plan - Plan 72-year-old female with a history of osteoporosis and hyperlipidemia who presents with increasing shortness of breath. Hemoglobin 8.8 on arrival. Suspected GI bleed. Anemia, suspect symptomatic Possible GIB, Hemoccult positive on admission Iron deficiency with iron of 10, percent saturation 2.8, ferritin 9 folate greater than 20, Vitamin B12 479 Hemoglobin 8.8 at admission, dropped to 7.9 with repeat H/H stable at 7.9. ? initial H/H hemoconcentrated No active bleeding -GI following, appreciate their assistance. Plan for EGD and colonoscopy on Thursday. To begin prep tomorrow. -Continue on pantoprazole drip -follow Hgb closely, repeat later today and in am -begin po iron supplementation BID and Vitamin B12 1000mcg daily Exertional dyspnea, possibly due to anemia secondary to GI bleed CXR neg, images reviewed by me -up with PT, monitor respiratory status while participating with therapy -We will obtain echocardiogram to rule out cardiac etiology of exertional dyspnea Orthostatic hypotension Systolic BP 153 lying, 118 standing -Discussed slow transitions -JORDON hose on prior to gettin gout of bed -monitor, repeat orthostatic BP measurements -fall precautions DVT prophylaxis: SCDs Code Status: FULL Discussed Condition With: patient, nursing staff, Dr. Burciaga Discharge Planning: Not ready for discharge. D/C pending GI clearance, echo results, H/H staying stable.
[2018-07-17 13:10] LABS: Hematocrit 23.6 % (35.0-46.0); Hemoglobin 7.9 gm/dL (11.6-15.3)
[2018-07-17] MEDS: Ascorbic Acid 500 MG Tablet PO SCH ×2 (13:53→21:27)
[2018-07-17] MEDS: Ferrous Sulfate 325 MG Tablet PO SCH ×2 (13:53→21:28)
--- NOTE | 2018-07-17 16:19 | ECHRPT ---
Indication: SHORTNESS OF BREATH CONCLUSIONS The left ventricular systolic function is normal with an estimated ejection fraction in the range of 60-65%. Normal left ventricular size. Wall thickness is normal. No regional wall motion abnormalities are present. [id number] mitral valve regurgitation. There is trace tricuspid valve regurgitation. The estimated pulmonary arterial pressure is 34.2 mmHg. BP: / HR: Rhythm: Sinus MEASUREMENTS (Male / Female) Normal Values Technical Quality:Good 2D ECHO LV Diastolic Diameter PLAX 3.4 cm 4.2 - 5.9 / 3.9 - 5.3 cm LV Systolic Diameter PLAX 2.5 cm IVS Diastolic Thickness 1.0 cm 0.6 - 1.0 / 0.6 - 0.9 cm LVPW Diastolic Thickness 1.0 cm 0.6 - 1.0 / 0.6 - 0.9 cm LV Relative Wall Thickness 0.6 RV Internal Dim ED PLAX 2.1 cm LVOT Diameter 1.9 cm LV Ejection Fraction MOD 4C 62.5 % LV Ejection Fraction 4C AL 62.8 % M-MODE Aortic Root Diameter MM 1.7 cm LA Systolic Diameter MM 2.3 cm LA Ao Ratio MM 1.4 AV Cusp Separation MM 1.7 cm DOPPLER AV Peak Velocity 110.0 cm/s AV Peak Gradient 4.8 mmHg LVOT Peak Velocity 91.3 cm/s LVOT Peak Gradient 3.3 mmHg AV Area Cont Eq pk 2.4 cm MV Area PHT 3.2 cm Mitral E Point Velocity 74.0 cm/s Mitral A Point Velocity 88.4 cm/s Mitral E to A Ratio 0.8 TR Peak Velocity 246.0 cm/s TR Peak Gradient 24.2 mmHg Right Atrial Pressure 10.0 mmHg Pulmonary Artery Systolic Pressu 34.2 mmHg Right Ventricular Systolic Press 34.2 mmHg PV Peak Velocity 114.0 cm/s PV Peak Gradient 5.2 mmHg FINDINGS LEFT VENTRICLE The left ventricular systolic function is normal with an estimated ejection fraction in the range of 60-65%. Normal left ventricular size. Wall thickness is normal. No regional wall motion abnormalities are present. RIGHT VENTRICLE Normal right ventricular size and systolic function. LEFT ATRIUM The left atrial size is normal. RIGHT ATRIUM The right atrial size is normal. ATRIAL SEPTUM Normal atrial septal thickness without atrial level shunting by limited color doppler interrogation. AORTA The aortic root and proximal ascending aorta are normal in size on limited imaging. MITRAL VALVE Structurally normal mitral valve. [id number]-[id number] mitral valve regurgitation. AORTIC VALVE Trileaflet aortic valve. No aortic valve stenosis or regurgitation. TRICUSPID VALVE Structurally normal tricuspid valve. There is trace tricuspid valve regurgitation. The estimated pulmonary arterial pressure is 34.2 mmHg. PULMONARY VALVE No pulmonary valve regurgitation or stenosis. VESSELS The inferior vena cava is normal in size. PERICARDIUM No pericardial effusion. Rick Lee MD (Electronically Signed) Final Date:17 July 2018 16:18
[2018-07-17 19:42] LABS: Hematocrit 21.9 % (35.0-46.0); Hemoglobin 7.3 gm/dL (11.6-15.3)
[2018-07-18 06:49] LABS: Hematocrit 23.6 % (35.0-46.0); Hemoglobin 7.8 gm/dL (11.6-15.3); Mean Corpuscular HGB Conc 32.9 % (32.0-36.0); Mean Corpuscular Volume 88.2 fL (80.0-100.0); Mean Platelet Volume 8.6 fL (7.0-11.0); Platelet Count 314 th/mm3 (150-450); Red Blood Count 2.67 mil/mm3 (4.00-5.30); Red Cell Distribution Width 18.1 % (11.6-17.2); White Blood Count 6.5 th/mm3 (4.0-11.0)
[2018-07-18] MEDS: Ascorbic Acid 500 MG Tablet PO SCH ×2 (08:28→23:02)
[2018-07-18] MEDS: Ferrous Sulfate 325 MG Tablet PO SCH ×2 (08:28→23:02)
[2018-07-18] MEDS: Pantoprazole Inj 80 MG in Sodium Chlor 0.9% Inj 100 ML IV.CONT SCH ×2 (08:30→18:59)
[2018-07-18] MEDS ORDERED: Sodium Chlor 0.9% Inj 250 ML IV.SIG SCH (10:00)
--- NOTE | 2018-07-18 11:46 | P.PNGI ---
Subjective Interval history: Resting in the bed generalized weakness no obvious bleeding no nausea vomiting or abdominal pain Tolerating clear liquids <AubrieLenoraVivian Nelli - Last Filed: 07/18/18 11:42> Physical Exam Vital signs: Vital Signs 07/17/18 12:00 07/17/18 13:50 07/17/18 14:14 Temperature 98.2 F Pulse Rate 83 119 H Respiratory Rate 16 18 Blood Pressure 133/63 125/55 L Pulse Oximetry 99 98 97 07/17/18 14:15 07/17/18 16:00 07/17/18 20:00 Temperature 98.5 F 98.2 F Pulse Rate 113 H 85 88 Respiratory Rate 18 18 16 Blood Pressure 127/61 156/67 H 135/61 Pulse Oximetry 98 99 98 07/17/18 23:41 07/18/18 00:00 07/18/18 03:58 Temperature 97.9 F 97.9 F 98.1 F Pulse Rate 84 84 81 Respiratory Rate 16 16 16 Blood Pressure 149/68 H 149/68 H 146/62 H Pulse Oximetry 97 97 99 07/18/18 07:42 Temperature 98.6 F Pulse Rate 93 H Respiratory Rate 20 Blood Pressure 132/61 Pulse Oximetry 98 Intake & Output 07/17/18 07/18/18 07/18/18 18:59 06:59 18:59 Intake Total 100 / 100 100 / 100 100 / 100 Balance 100 / 100 100 / 100 100 / 100 Intake: IV 100 / 100 100 / 100 100 / 100 Protonix Inj 80 MG In NS Inj 100 / 100 100 / 100 100 / 100 100 ML @ 10 mls/hr IV.CONT CONT [facility] Rx#:[id number] Other: Date of Last Bowel Movement 07/16/18 - Constitutional no acute distress, thin, cooperative - Routine HEENT Exam Head: Present: normocephalic ENT: Present: mucous membranes moist - Routine Respiratory Exam Present: accessory muscle use (No obvious shortness of breath) - Routine Cardiovascular Exam Present: S1, S2 - Routine Abdominal Exam Present: soft (Flat,), normoactive bowel sounds <Vivian Alfred - Last Filed: 07/18/18 11:42> Vital signs: Vital Signs 07/17/18 13:50 07/17/18 14:14 07/17/18 14:15 Temperature Pulse Rate 119 H 113 H Respiratory Rate 18 18 Blood Pressure 125/55 L 127/61 Pulse Oximetry 98 97 98 07/17/18 16:00 07/17/18 20:00 07/17/18 23:41 Temperature 98.5 F 98.2 F 97.9 F Pulse Rate 85 88 84 Respiratory Rate 18 16 16 Blood Pressure 156/67 H 135/61 149/68 H Pulse Oximetry 99 98 97 07/18/18 00:00 07/18/18 03:58 07/18/18 07:42 Temperature 97.9 F 98.1 F 98.6 F Pulse Rate 84 81 93 H Respiratory Rate 16 16 20 Blood Pressure 149/68 H 146/62 H 132/61 Pulse Oximetry 97 99 98 07/18/18 09:00 07/18/18 11:41 Temperature 98.2 F Pulse Rate 84 94 H Respiratory Rate 20 Blood Pressure 128/61 Pulse Oximetry 96 Intake & Output 07/17/18 07/18/18 07/18/18 18:59 06:59 18:59 Intake Total 100 / 100 100 / 100 100 / 100 Balance 100 / 100 100 / 100 100 / 100 Intake: IV 100 / 100 100 / 100 100 / 100 Protonix Inj 80 MG In NS Inj 100 / 100 100 / 100 100 / 100 100 ML @ 10 mls/hr IV.CONT CONT [facility] Rx#:[id number] Other: Date of Last Bowel Movement 07/16/18 <Grace Montalvo - Last Filed: 07/18/18 12:01> Results - Labs CBC & Chem 7: 07/18/18 05:46 07/17/18 05:08 Laboratory Results - last 24 hr 07/17/18 07/17/18 07/18/18 12:44 19:12 05:46 WBC 6.5 RBC 2.67 L Hgb 7.9 L 7.3 L 7.8 L Hct 23.6 L 21.9 L 23.6 L MCV 88.2 MCH 29.0 MCHC 32.9 RDW 18.1 H Plt Count 314 MPV 8.6 MTS Gel Crossmatch 07/18/18 09:49 WBC RBC Hgb Hct MCV MCH MCHC RDW Plt Count MPV MTS Gel Crossmatch See Detail <Vivian Alfred - Last Filed: 07/18/18 11:42> - Labs CBC & Chem 7: 07/18/18 05:46 07/17/18 05:08 Laboratory Results - last 24 hr 07/17/18 07/17/18 07/18/18 12:44 19:12 05:46 WBC 6.5 RBC 2.67 L Hgb 7.9 L 7.3 L 7.8 L Hct 23.6 L 21.9 L 23.6 L MCV 88.2 MCH 29.0 MCHC 32.9 RDW 18.1 H Plt Count 314 MPV 8.6 MTS Gel Crossmatch 07/18/18 09:49 WBC RBC Hgb Hct MCV MCH MCHC RDW Plt Count MPV MTS Gel Crossmatch See Detail <Grace Montalvo - Last Filed: 07/18/18 12:01> Assessment and Plan - Plan 07/17/2018 patient is resting in the bed family members present appetite has improved and is currently requesting food today cardiac diet has been ordered. Discussed with patient EGD and colonoscopy Thursday and . Currently patient denies any abdominal pain nausea or vomiting. Family and patient state approximately of 6 pound weight loss in the past 2-3 months. Hemoglobin check was initially 8.8 now 7.9, PT/INR 0.9, folate level less than 20, bilirubin and LFTs are normal. Discussed with patient positive Hemoccult on admission and patient does state she has history of hemorrhoids , but no obvious bleeding No obvious shortness of breath at rest this a.m. Symptomatic anemia with mild decreasing hemoglobin. Consider transfusion if symptomatic 07/18/2018 patient is resting in the bed denies any acute abdominal pain nausea or vomiting. Current hemoglobin 7.8 patient does note some generalized weakness. Family is at her bedside for support and to assist her. Discussed again plan for EGD and colonoscopy Thursday and prep that is needed for patient added Dulcolax p.o. to prep. Supportive care Plan: Diet clear liquids today N.p.o. at midnight EGD colonoscopy for a.m. Mag citrate x2 bottles and prep Dulcolax p.o. added Monitor labs with special attention to hemoglobin, consider transfusion if symptomatic Protonix Bowel regimen Supportive care Further recommendations to follow Pt has been seen and examined by myself and Dr. Montalvo and this note is written on his behalf <Vivian Alfred - Last Filed: 07/18/18 11:42> - Plan Seen and examined with [employer], no bleeding but received 1 unit of PRBC today. EGD/ Colonoscopy tomorrow. The exam, history, and the medical decision-making described in the above note were completed with the assistance of the mid-level provider. I reviewed and agree with the findings presented. I attest that I had a [id number] encounter with the patient on the same day, and personally performed and documented my assessment and findings in the medical record. <Grace Montalvo - Last Filed: 07/18/18 12:01>
--- NOTE | 2018-07-18 12:09 | P.PN ---
Subjective Interval history: Follow-up on patient with low blood count, exertional dyspnea. Patient seen and examined. Patient reports dyspnea when up walking around the unit yesterday. No dyspnea at rest. She denies any chest pain. She denies any N/V or abdominal pain. She reports small hard BM this am, normal, brown, no e/o bleeding. Physical Exam Vital signs: Vital Signs 07/17/18 13:50 07/17/18 14:14 07/17/18 14:15 Temperature Pulse Rate 119 H 113 H Respiratory Rate 18 18 Blood Pressure 125/55 L 127/61 Pulse Oximetry 98 97 98 07/17/18 16:00 07/17/18 20:00 07/17/18 23:41 Temperature 98.5 F 98.2 F 97.9 F Pulse Rate 85 88 84 Respiratory Rate 18 16 16 Blood Pressure 156/67 H 135/61 149/68 H Pulse Oximetry 99 98 97 07/18/18 00:00 07/18/18 03:58 07/18/18 07:42 Temperature 97.9 F 98.1 F 98.6 F Pulse Rate 84 81 93 H Respiratory Rate 16 16 20 Blood Pressure 149/68 H 146/62 H 132/61 Pulse Oximetry 97 99 98 07/18/18 09:00 07/18/18 11:41 Temperature 98.2 F Pulse Rate 84 94 H Respiratory Rate 20 Blood Pressure 128/61 Pulse Oximetry 96 Intake & Output 07/17/18 07/18/18 07/18/18 18:59 06:59 18:59 Intake Total 100 / 100 100 / 100 100 / 100 Balance 100 / 100 100 / 100 100 / 100 Intake: IV 100 / 100 100 / 100 100 / 100 Protonix Inj 80 MG In NS Inj 100 / 100 100 / 100 100 / 100 100 ML @ 10 mls/hr IV.CONT CONT [facility] Rx#:[id number] Other: Date of Last Bowel Movement 07/16/18 Narrative: GENERAL: Thin elderly female. Awake and alert. Not in any respiratory discomfort, no acute distress. Family is at the bedside SKIN: Warm and dry. HEENT: Atraumatic. Normocephalic. Pupils equal and round. No scleral icterus. No injection or drainage. No nasal bleeding or discharge. Mucous membranes pink and moist. NECK: Trachea midline. CARDIOVASCULAR: Tachycardic. No murmur auscultated. RESPIRATORY: No accessory muscle use. Clear to auscultation. Breath sounds equal bilaterally. GASTROINTESTINAL: Abdomen soft, non-tender, nondistended. +BS. MUSCULOSKELETAL: Extremities without clubbing, cyanosis, or edema. No obvious deformities. NEUROLOGICAL: Awake and alert. No obvious cranial nerve deficits. Motor grossly within normal limits. Able to move all extremities spontaneously. Normal speech. PSYCHIATRIC: Appropriate mood and affect; insight and judgment normal. Results - Labs CBC & Chem 7: 07/18/18 12:36 07/17/18 05:08 Laboratory Results - last 24 hr 07/17/18 07/17/18 07/18/18 12:44 19:12 05:46 WBC 6.5 RBC 2.67 L Hgb 7.9 L 7.3 L 7.8 L Hct 23.6 L 21.9 L 23.6 L MCV 88.2 MCH 29.0 MCHC 32.9 RDW 18.1 H Plt Count 314 MPV 8.6 MTS Gel Crossmatch 07/18/18 09:49 WBC RBC Hgb Hct MCV MCH MCHC RDW Plt Count MPV MTS Gel Crossmatch See Detail Assessment and Plan - Plan 72-year-old female with a history of osteoporosis and hyperlipidemia who presents with increasing shortness of breath. Hemoglobin 8.8 on arrival. Suspected GI bleed. Anemia, symptomatic Possible GIB, Hemoccult positive on admission Iron deficiency with iron of 10, percent saturation 2.8, ferritin 9 folate greater than 20, Vitamin B12 479 Hemoglobin 8.8 at admission, dropped to 7.3. Patient short of breath and tachycardic with exertion. No e/o active bleeding -transfuse one unit PRBCs -GI following, appreciate their assistance. Plan for EGD and colonoscopy on Thursday. To begin prep today. -Continue on pantoprazole drip -follow Hgb closely -continue po iron supplementation BID and Vitamin B12 1000mcg daily Exertional dyspnea, suspect secondary to symptomatic anemia secondary to GI bleed CXR neg Echo EF 60-65%, no wall motion abnormalities -up with PT, monitor respiratory status while participating with therapy Orthostatic hypotension Systolic BP 153 lying, 118 standing, repeat orthostatics 135/63 lying, 100/54 standing -Discussed slow transitions -JORDON hose on prior to getting out of bed -monitor, repeat orthostatic BP measurements - likely will improve after transfusion -fall precautions Constipation, in part 2/2 po iron -discussed use of stool softeners -likely will resolve with colon prep DVT prophylaxis: SCDs Code Status: FULL Discussed Condition With: patient, nursing staff, Dr. Burciaga Discharge Planning: Not ready for discharge. D/C pending GI clearance.
[2018-07-18 12:55] LABS: Hematocrit 25.1 % (35.0-46.0); Hemoglobin 8.1 gm/dL (11.6-15.3)
[2018-07-18] MEDS ORDERED: Magnesium Citrate Liq 300 ML Bottle PO ONE ×2 (17:30→19:30)
[2018-07-18 18:19] LABS: Hematocrit 31.5 % (35.0-46.0); Hemoglobin 10.8 gm/dL (11.6-15.3)
[2018-07-18] MEDS ORDERED: Morphine Inj 4 MG/ML Vial IV.PUSH PRN (23:35)
[2018-07-19 07:11] LABS: Hematocrit 30.3 % (35.0-46.0)
[2018-07-19] MEDS ORDERED: Chlorhexidine Gluconate 2% 1 Pack (2 Cloths) TOPICAL ONE (11:30)
[2018-07-19] MEDS ORDERED: Metoprolol Tartrate 25 MG Tablet PO ONE (11:30)
[2018-07-19] MEDS ORDERED: Sodium Chlor 0.9% Inj 500 ML IV.CONT ONE (11:30)
[2018-07-19] MEDS ORDERED: Esmolol Bolus Inj 100 MG/10 ML Vial IV.PUSH ONE (12:48)
--- NOTE | 2018-07-19 13:14 | P.PCN ---
Date of procedure: 07/19/18 Pre-op diagnosis: Anemia, guaiac positive stools Procedure: PROCEDURE PERFORMED EGD with biopsy followed by a colonoscopy PROCEDURE: The procedure, risks and benefits were discussed with Patient/POA and informed consent was obtained. Anesthesia sedated Patient with Diprivan. Patient was placed in the left lateral decubitus position. EGD: The Pentax videoscope was introduced through the oropharynx and advanced to the second portion of the duodenum under direct visualization. Retroflexion was performed in the stomach. FINDINGS: The esophagus this was normal The stomach there was some patchy erythema in the antrum but no ulcerations no erosions no blood or bleeding the rest of the stomach was unremarkable antral biopsies were taken for further evaluation The duodenum there was a large superficial clean-based duodenal bulb ulcer no visible vessel no blood or bleeding slightly raised and edematous edges these were biopsied the rest of the duodenum was unremarkable Colonoscopy: The Pentax videoscope was introduced through the rectum and advanced to cecum where the ileocecal valve and appendiceal orifice were identified. Retroflexion was performed in the rectum. Colonic prep was good FINDINGS: Colonic withdrawal time greater than 6 minutes. As the scope was slowly withdrawn colonic mucosa was carefully inspected the colonic mucosa appeared to be unremarkable and within normal limits all the way through so is retroflexion and rectal examination ESTIMATED BLOOD LOSS: None SPECIMENS REMOVED: Gastric and duodenal biopsies COMPLICATIONS: None IMPRESSION: Gastritis Duodenal ulcer Normal colonoscopy PLAN: Await biopsies Advance diet as tolerated Avoid NSAIDs and aspirin and anticoagulation Recommend Protonix 40 mg twice daily Follow-up with GI post discharge If all is stable tomorrow patient may be discharged from a GI standpoint Anesthesia: MAC Surgeon: Jaylen Montiel Condition: stable Disposition: floor
[2018-07-19] MEDS: Ascorbic Acid 500 MG Tablet PO SCH ×2 (14:08→20:23)
[2018-07-19] MEDS: Ferrous Sulfate 325 MG Tablet PO SCH ×2 (14:08→20:22)
--- NOTE | 2018-07-19 14:33 | P.PN ---
Subjective Interval history: Follow-up on patient with anemia, exertional dyspnea. Patient seen and examined. Patient states she feels good. She denies any shortness of breath. She denies any chest pain, nausea, vomiting or abdominal pain. Physical Exam Vital signs: Vital Signs 07/18/18 15:50 07/18/18 15:53 07/18/18 20:00 Temperature 98.0 F 98.0 F 98.5 F Pulse Rate 88 88 92 H Respiratory Rate 16 16 17 Blood Pressure 142/64 H 142/64 H 145/64 H Pulse Oximetry 98 98 97 07/18/18 23:24 07/19/18 04:00 07/19/18 08:00 Temperature 98.4 F 98.4 F 98.2 F Pulse Rate 92 H 88 92 H Respiratory Rate 17 15 12 Blood Pressure 166/79 H 127/59 L 127/57 L Pulse Oximetry 98 96 99 07/19/18 13:08 07/19/18 13:30 Temperature 98.2 F 98 F Pulse Rate 81 76 Respiratory Rate 20 20 Blood Pressure 143/69 H 146/71 H Pulse Oximetry 99 98 Intake & Output 07/18/18 07/19/18 07/19/18 18:59 06:59 18:59 Intake Total 650 / 650 100 / 100 300 / 300 Balance 650 / 650 100 / 100 300 / 300 Intake: IV 250 / 250 100 / 100 300 / 300 LR 1000 mL Inj 1,000 ML @ 30 300 / 300 mls/hr IV.CONT .Q24H ONE Rx#: [id number] Protonix Inj 80 MG In NS Inj 200 / 200 100 / 100 100 ML @ 10 mls/hr IV.CONT CONT [facility] Rx#:[id number] NS Inj 250 ML @ 15 mls/hr IV. 50 / 50 SIG ONCE [facility] Rx#:[id number] Intake (Blood Product) Amt 400 / 400 Rbc As-3 Leukoreduced Unit 400 / 400 [id number] Other: Date of Last Bowel Movement 07/19/18 Narrative: GENERAL: Thin elderly female. Awake and alert. No acute distress. Family is at the bedside SKIN: Warm and dry. HEENT: Atraumatic. Normocephalic. Pupils equal and round. No scleral icterus. No injection or drainage. No nasal bleeding or discharge. Mucous membranes pink and moist. NECK: Trachea midline. CARDIOVASCULAR: Tachycardic. No murmur auscultated. RESPIRATORY: No accessory muscle use. Clear to auscultation. Breath sounds equal bilaterally. GASTROINTESTINAL: Abdomen soft, non-tender, nondistended. +BS. MUSCULOSKELETAL: Extremities without clubbing, cyanosis, or edema. No obvious deformities. NEUROLOGICAL: Awake and alert. No obvious cranial nerve deficits. Motor grossly within normal limits. Able to move all extremities spontaneously. Normal speech. PSYCHIATRIC: Appropriate mood and affect; insight and judgment normal. Results - Labs CBC & Chem 7: 07/19/18 06:25 07/17/18 05:08 Laboratory Results - last 24 hr 07/18/18 07/18/18 07/19/18 09:49 17:54 06:25 Hgb 10.8 L D 10.0 L Hct 31.5 L 30.3 L MTS Gel Crossmatch See Detail Assessment and Plan - Plan 72-year-old female with a history of osteoporosis and hyperlipidemia who presents with increasing shortness of breath. Hemoglobin 8.8 on arrival. Suspected GI bleed. Anemia, symptomatic Possible GIB, Hemoccult positive on admission Iron deficiency with iron of 10, percent saturation 2.8, ferritin 9 folate greater than 20, Vitamin B12 479 Hemoglobin 8.8 at admission, dropped to 7.3. Patient short of breath and tachycardic with exertion. No e/o active bleeding -Hemoglobin 10.8 status post transfusion 1 unit. Repeat hemoglobin 10 this a.m. -GI following, appreciate their assistance. Plan for EGD/colonoscopy today. Keep n.p.o. -Continue on pantoprazole drip -follow Hgb closely -continue po iron supplementation BID and Vitamin B12 1000mcg daily Exertional dyspnea, suspect secondary to symptomatic anemia secondary to GI bleed CXR neg Echo EF 60-65%, no wall motion abnormalities -up with PT, monitor respiratory status while participating with therapy Orthostatic hypotension Systolic BP 153 lying, 118 standing, repeat orthostatics 135/63 lying, 100/54 standing -Discussed slow transitions -JORDON hose on prior to getting out of bed -monitor, repeat orthostatic BP measurements improved -fall precautions Constipation, in part 2/2 po iron -discussed use of stool softeners DVT prophylaxis: SCDs Code Status: FULL Discussed Condition With: patient, nursing staff, Dr. Burciaga Discharge Planning: Not ready for discharge. D/C pending GI clearance/EGD/colonoscopy procedure.
[2018-07-20 07:33] VITALS: BP 141/66; PULSE 77; RESP 20; TEMP 98.4; O2SAT 100
[2018-07-20 09:04] LABS: Hemoglobin 10.2 gm/dL (11.6-15.3); Mean Corpuscular HGB Conc 35.1 % (32.0-36.0); Mean Corpuscular Hemoglobin 31.1 pg (27.0-34.0); Mean Corpuscular Volume 88.5 fL (80.0-100.0); Mean Platelet Volume 8.1 fL (7.0-11.0); Platelet Count 346 th/mm3 (150-450); Red Blood Count 3.27 mil/mm3 (4.00-5.30); Red Cell Distribution Width 17.1 % (11.6-17.2); White Blood Count 9.6 th/mm3 (4.0-11.0)
[2018-07-20 09:32] LABS: Calcium 8.8 mg/dL (8.5-10.1); Carbon Dioxide 24.4 meq/L (21.0-32.0); Potassium 3.6 meq/L (3.5-5.1)
--- NOTE | 2018-07-20 12:00 | P.DS ---
Date of admission: 07/16/18 16:15 Primary care physician: Ale Mcgrath MD Anticipated date of discharge: 07/20/18 Brief History from admission: Patient is a 72-year-old female who presented to the emergency room after seeing her primary care physician who noted low hemoglobin. Her past medical history includes osteoporosis and hyperlipidemia. Patient was found to have a hemoglobin of 8.8 in the emergency room. She complains of becoming very short of breath and tired while doing physical activity that was previously not difficult for her. This is been going on for 2-3 days and was initially noticed after her daily 20-30 minute walks. She also reports a recent episode of epigastric pain over the weekend that resolved on its own. She has not had any nausea or vomiting. She does tell me that she has been experiencing hard stools for several days. She did have a large bowel movement today-denies any blood or dark tarry stools. No history of GI problems or bleeds. She has never had a colonoscopy per her report. She is a current smoker-tells me she has cut back and now only smokes 1 pack over every 3 days. Denies any history of asthma or problems with shortness of breath. No recent respiratory illnesses. Denies any cardiac history other than hyperlipidemia. Per her report her primary doctor recently stopped her statin as he felt it was not beneficial any longer. She does take a daily aspirin. Patient update on day of discharge: The patient reports feeling much better today. She denies any significant abdominal pain. Denies any nausea or vomiting. She is tolerated oral intake. Denies any chest pain or shortness of breath. She wants to go home. She has no new medical complaints at this time. DS: Diagnosis - Discharge Diagnosis (1) Gastritis Status: Acute (2) Duodenal ulcer Status: Acute (3) Symptomatic anemia Status: Acute (4) Exertional dyspnea Status: Acute DS: Medications - Discharge Medications Prescriptions: pantoprazole [Protonix] 40 mg PO BID #60 tab DS: Summary Hospital Course: 72-year-old female with a history of osteoporosis and hyperlipidemia who presents with increasing shortness of breath. Hemoglobin 8.8 on arrival. Suspected GI bleed. Symptomatic Anemia, secondary to GI Bleeding: Hemoccult positive on admission. Hemoglobin 8.8 at admission, dropped to 7.3. Patient short of breath and tachycardic with exertion. Iron deficiency with iron of 10, percent saturation 2.8, ferritin 9. Folate greater than 20, Vitamin B12 479. Given 1u pRBC tranfsusion. Given Protonix drip. Repeat hemoglobin stable at 10.2. GI consulted. S/p EGD/colonoscopy 07/19, showed gastritis, duodenal ulcer, normal colonoscopy. GI recommended protonix 40mg bid. Diet advanced, patient tolerated well. Cleared for discharge by GI. Continue po iron supplementation BID and Vitamin B12 1000mcg daily. Exertional dyspnea, suspect secondary to symptomatic anemia secondary to GI bleed. CXR neg. Echo EF 60-65%, unremarkable. Symptoms improved with resolution of anemia. Orthostatic hypotension: Systolic BP 153 lying, 118 standing, repeat orthostatics 135/63 lying, 100/54 standing. Discussed slow transitions. JORDON hose on prior to getting out of bed. Repeat orthostatic BP measurements improved. Stable for discharge. Constipation, in part 2/2 po iron. Discussed use of stool softeners. Resolved with bowel prep for colonoscopy. All other medical conditions stable, continued home medications as appropriate. - Time Spent with Patient Total time spent providing and/or coordinating discharge services: Less than 30 minutes - Quality: VTE Deep Vein Thrombosis/Pulmonary Embolism Present on Admission: No Exam Vital signs: Vital Signs 07/19/18 13:08 07/19/18 13:30 07/19/18 15:22 Temperature 98.2 F 98 F 98.3 F Pulse Rate 81 76 103 H Respiratory Rate 20 20 16 Blood Pressure 143/69 H 146/71 H 154/70 H Pulse Oximetry 99 98 100 07/19/18 17:27 07/19/18 20:00 07/19/18 20:31 Temperature 98.3 F Pulse Rate 85 91 H 100 H Respiratory Rate 16 16 Blood Pressure 157/69 H 131/60 Pulse Oximetry 99 97 07/20/18 04:00 07/20/18 04:22 07/20/18 07:30 Temperature 98.4 F Pulse Rate 79 82 77 Respiratory Rate 16 20 Blood Pressure 129/56 L 141/66 H Pulse Oximetry 98 100 Intake & Output 07/19/18 07/20/18 07/20/18 18:59 06:59 18:59 Intake Total 600 / 600 Balance 600 / 600 Intake: IV 300 / 300 LR 1000 mL Inj 1,000 ML @ 30 300 / 300 mls/hr IV.CONT .Q24H ONE Rx#: [id number] Anesthesia Amount 300 / 300 Other: Date of Last Bowel Movement 07/19/18 07/19/18 Narrative: GENERAL: Well-nourished, well-developed elderly female patient in [facility]. SKIN: Warm and dry. No rash. HEENT: Normocephalic. Atraumatic. Mucous membranes pink and moist. CARDIOVASCULAR: Regular rate and rhythm. No murmur appreciated. RESPIRATORY: No accessory muscle use. Clear to auscultation. Breath sounds equal bilaterally. GASTROINTESTINAL: Abdomen soft, non-tender, nondistended. Normoactive bowel sounds x4. MUSCULOSKELETAL: No obvious deformities. Extremities without clubbing, cyanosis , or edema. NEUROLOGICAL: Awake and alert. No obvious cranial nerve deficits. Motor grossly within normal limits. Moving all extremities spontaneously. Normal speech. Results Procedures completed during hospitalization: Date of procedure: 07/19/18 Pre-op diagnosis: Anemia, guaiac positive stools Procedure: EGD with biopsy followed by a colonoscopy FINDINGS: The esophagus this was normal The stomach there was some patchy erythema in the antrum but no ulcerations no erosions no blood or bleeding the rest of the stomach was unremarkable antral biopsies were taken for further evaluation The duodenum there was a large superficial clean-based duodenal bulb ulcer no visible vessel no blood or bleeding slightly raised and edematous edges these were biopsied the rest of the duodenum was unremarkable FINDINGS: Colonic withdrawal time greater than 6 minutes. As the scope was slowly withdrawn colonic mucosa was carefully inspected the colonic mucosa appeared to be unremarkable and within normal limits all the way through so is retroflexion and rectal examination SPECIMENS REMOVED: Gastric and duodenal biopsies IMPRESSION: Gastritis Duodenal ulcer Normal colonoscopy PLAN: Await biopsies Advance diet as tolerated Avoid NSAIDs and aspirin and anticoagulation Recommend Protonix 40 mg twice daily Follow-up with GI post discharge Pending studies at discharge: Pending at discharge 07/19/18 14:02 Surgical [PTH] Routine Labs on day of discharge: Labs from last 24 hours 07/20/18 07/20/18 08:32 08:32 WBC 9.6 RBC 3.27 L Hgb 10.2 L Hct 29.0 L MCV 88.5 MCH 31.1 MCHC 35.1 RDW 17.1 Plt Count 346 MPV 8.1 Sodium 143 Potassium 3.6 Chloride 109 H Carbon Dioxide 24.4 Anion Gap 10 BUN 17 Creatinine 0.67 Estimated GFR 86 L Random Glucose 104 Calcium 8.8 - Impressions Chest X-Ray 07/16/18 16:04 CONCLUSION: No acute cardiopulmonary abnormality is identified. Discharge Plan - Discharge Disposition Patient Disposition: 01 Discharge Home - Discharge Condition Condition: Stable - Discharge Order Discharge Orders: Discharge Order (Routine); Ordered 07/20/18 Ordered By: [place] - Discharge Details Anticipated Discharge Date: 07/20/18 Discharge Comment: Discharge after breakfast. - Physicians Team Primary Care Provider: Ale Mcgrath Attending Provider: Tio Burciaga Other Providers: Grace Montalvo MD
--- NOTE | 2018-07-20 14:47 | P.PNGI ---
Subjective Interval history: Patient is sitting on side of the bed with her close I am excited to be discharged denies any current nausea vomiting or abdominal pain <Vivian Alfred - Last Filed: 07/20/18 14:45> Physical Exam Vital signs: Vital Signs 07/19/18 15:22 07/19/18 17:27 07/19/18 20:00 Temperature 98.3 F 98.3 F Pulse Rate 103 H 85 91 H Respiratory Rate 16 16 Blood Pressure 154/70 H 157/69 H Pulse Oximetry 100 99 07/19/18 20:31 07/20/18 04:00 07/20/18 04:22 Temperature Pulse Rate 100 H 79 82 Respiratory Rate 16 16 Blood Pressure 131/60 129/56 L Pulse Oximetry 97 98 07/20/18 07:30 Temperature 98.4 F Pulse Rate 77 Respiratory Rate 20 Blood Pressure 141/66 H Pulse Oximetry 100 Intake & Output 07/19/18 07/20/18 07/20/18 18:59 06:59 18:59 Intake Total 600 / 600 Balance 600 / 600 Intake: IV 300 / 300 LR 1000 mL Inj 1,000 ML @ 30 300 / 300 mls/hr IV.CONT .Q24H ONE Rx#: [id number] Anesthesia Amount 300 / 300 Other: Date of Last Bowel Movement 07/19/18 07/19/18 - Constitutional no acute distress, thin - Routine HEENT Exam Head: Present: normocephalic ENT: Present: mucous membranes moist - Routine Cardiovascular Exam Present: S1, S2 - Routine Abdominal Exam Present: soft, normoactive bowel sounds <Vivian Alfred - Last Filed: 07/20/18 14:45> Vital signs: Vital Signs 07/19/18 17:27 07/19/18 20:00 07/19/18 20:31 Temperature 98.3 F Pulse Rate 85 91 H 100 H Respiratory Rate 16 16 Blood Pressure 157/69 H 131/60 Pulse Oximetry 99 97 07/20/18 04:00 07/20/18 04:22 07/20/18 07:30 Temperature 98.4 F Pulse Rate 79 82 77 Respiratory Rate 16 20 Blood Pressure 129/56 L 141/66 H Pulse Oximetry 98 100 Intake & Output 07/19/18 07/20/18 07/20/18 18:59 06:59 18:59 Intake Total 600 / 600 Balance 600 / 600 Intake: IV 300 / 300 LR 1000 mL Inj 1,000 ML @ 30 300 / 300 mls/hr IV.CONT .Q24H ONE Rx#: [id number] Anesthesia Amount 300 / 300 Other: Date of Last Bowel Movement 07/19/18 07/19/18 <Jaylen Montiel - Last Filed: 07/20/18 16:20> Results - Labs CBC & Chem 7: 07/20/18 08:32 07/20/18 08:32 Laboratory Results - last 24 hr 07/20/18 07/20/18 08:32 08:32 WBC 9.6 RBC 3.27 L Hgb 10.2 L Hct 29.0 L MCV 88.5 MCH 31.1 MCHC 35.1 RDW 17.1 Plt Count 346 MPV 8.1 Sodium 143 Potassium 3.6 Chloride 109 H Carbon Dioxide 24.4 Anion Gap 10 BUN 17 Creatinine 0.67 Estimated GFR 86 L Random Glucose 104 Calcium 8.8 <Vivian Alfred M - Last Filed: 07/20/18 14:45> - Labs CBC & Chem 7: 07/20/18 08:32 07/20/18 08:32 Laboratory Results - last 24 hr 07/20/18 07/20/18 08:32 08:32 WBC 9.6 RBC 3.27 L Hgb 10.2 L Hct 29.0 L MCV 88.5 MCH 31.1 MCHC 35.1 RDW 17.1 Plt Count 346 MPV 8.1 Sodium 143 Potassium 3.6 Chloride 109 H Carbon Dioxide 24.4 Anion Gap 10 BUN 17 Creatinine 0.67 Estimated GFR 86 L Random Glucose 104 Calcium 8.8 <Jaylen Montiel E - Last Filed: 07/20/18 16:20> Assessment and Plan - Plan 07/20/2018 patient is sitting on side of the bed family present and is currently preparing for her discharge Patient is status post EGD colonoscopy on 07/19/[address] Montiel. Findings include gastritis, duodenal ulcer, colonoscopy normal. Labs reviewed current hemoglobin 10 denies any dizziness or fatigue, PT/INR last checked 0.9. Discussed with patient to follow-up with biopsies that were done during EGD colonoscopy in the GI office at [place], and to stay on Protonix 40 mg twice a day. No acute distress noted before discharge Patient was seen per myself and Dr. Montiel, note was written on his behalf <Vivian Alfred - Last Filed: 07/20/18 14:45> - Plan Patient seen and examined Agree with above Continue with current supportive care Monitor labs Follow-up with GI post discharge <Jaylen Montiel - Last Filed: 07/20/18 16:20>
== END 2018-07-20 09:10 | disposition home or self-care (01) ==
LOC: NEDA 10:19 → NEPE 10:19 → NEDA 17:15 → NEPHCDU 17:17
PROVIDERS: ADMIT Hospitalist; ATTEND Hospitalist
PROC: PANENDO (2018-07-19 11:58)
PROC: COLONOS (2018-07-19 11:58)
DX: Z79.899 Other long term (current) drug therapy; E78.5 Hyperlipidemia, unspecified; M81.0 Age-related osteoporosis without current pathological fracture; I95.1 Orthostatic hypotension; F17.210 Nicotine dependence, cigarettes, uncomplicated; K29.70 Gastritis, unspecified, without bleeding; E78.00 Pure hypercholesterolemia, unspecified; I70.0 Atherosclerosis of aorta; R06.09 Other forms of dyspnea; Z90.710 Acquired absence of both cervix and uterus; E61.1 Iron deficiency; D64.9 Anemia, unspecified; K59.00 Constipation, unspecified; K92.1 Melena; K26.9 Duodenal ulcer, unspecified as acute or chronic, without hemorrhage or perforation; R06.02 Shortness of breath; Z79.82 Long term (current) use of aspirin